=== PATIENT | female | born 1950 | race Caucasian/White ===

== ENCOUNTER 2025-01-07 05:51 | Observation (INO) | payer OTHER ==
[2025-01-05 10:36] LABS: IMMATURE GRANULOCYTE ABSOLUTE 0.04 K/uL (0-1); NUCLEATED RED BLOOD CELLS 0.0 % (0.0-0.19); PLATELET COUNT (AUTO) 246 K/uL (130-400); RED BLOOD CELL COUNT(AUTO) 4.60 MIL/uL (4.00-5.50); RED CELL DISTRIBUTION WIDTH 14.3 % (11.0-15.5); WHITE BLOOD COUNT (AUTO) 5.8 K/uL (4.8-10.8)
[2025-01-05 10:39] VITALS: BP 138/63; PULSE 79; RESP 18; TEMP 97.3
--- NOTE | 2025-01-05 10:40 | NUR ---
RE: IS INITIAL IS INITIAL TEACHING DONE BY RT NICHOLAS DURING PREOP.
--- NOTE | 2025-01-05 10:44 | EKG ---
[facility] Test Date: 2025-01-05 Test Time: 10:28:48 Pat Name: JAYE MANSFIELD Department: [facility] Room: Gender: F Senior Office Assistant: [id number] : 1950 Requested By: SASHA RAZA Order Number: [id number] Reading MD: Jose Randall Measurements Intervals [place] Rate: 63 P: -23 NM: 75 QRS: 30 QRSD: 89 T: 67 QT: 406 QTc: 416 Interpretive Statements Sinus rhythm Low voltage, extremity and precordial leads Compared to ECG 08/17/2024 22:58:57 Low QRS voltage now present First degree AV block no longer present Electronically Signed On 01-05-2025 12:16:49 PLASTER APPLICATOR by Jose Randall Please click the below link to view image of tracing.
[2025-01-05 10:48] LABS: CREATININE 1.4 mg/dL (0.5-1.0); GLOMERULAR FILTR. RATE CALC 39.0 mL/min (>90); GLUCOSE,RANDOM 106.0 mg/dL (70-105); SODIUM SERUM 130.0 mmol/L (136-145); UREA NITROGEN, BLOOD 15.0 mg/dL (7-18)
[2025-01-05 11:48] LABS: INR 1.0 (0.85-1.15)
--- NOTE | 2025-01-05 16:45 | NUR ---
RE: LABS REPORTED BMP RESULTS TO DR ARNOLD, NO NEW ORDERS RECEIVED. OK TO PROCEED.
[~2025-01-07] VITALS: Ht 167.6 cm; Wt 107.1 kg
[2025-01-07] VITALS (23 sets, daily range): BP systolic 94–145; BP diastolic 50–78; PULSE 53–87; RESP 15–18; TEMP 97.6–98.1; O2SAT 94
[2025-01-07] MEDS ORDERED: TRANEXAMIC ACID 1000MG/10ML ONE (06:28)
[2025-01-07] MEDS: LACTATED RINGERS 1000ML 1,000 ML IV ONE (06:37)
[2025-01-07] MEDS ORDERED: MIDAZOLAM HCL 1 MG/ML 2ML VIAL ONE (06:48)
[2025-01-07] MEDS ORDERED: LIDOCAINE HCL/EPINEPHRINE 30 ML VIAL IJ ONE (07:07)
[2025-01-07] MEDS ORDERED: PROMETHAZINE HCL 25 MG/ML 1ML AMPULE IM PRN (07:30)
[2025-01-07] MEDS: TRANEXAMIC ACID 1000MG/10ML IV ONE ×2 (07:54→09:23)
[2025-01-07] MEDS: 0.9%NACL 1000ML 1,000 ML IV SCH (08:00)
[2025-01-07] MEDS ORDERED: PoTASSium chloRIDE 20MEQ ER 20 MEQ ERTAB PO PRN (08:00)
[2025-01-07] MEDS ORDERED: FERROUS FUMARATE 324 MG TABLET PO PRN (08:00)
[2025-01-07] MEDS ORDERED: CYCLOBENZAPRINE HCL 10 MG TABLET PO PRN (08:00)
[2025-01-07] MEDS ORDERED: PoTASSium chl 10% ELIXIR 20MEQ 20 MEQ/15 ML UDCUP PO PRN (08:00)
[2025-01-07] MEDS ORDERED: HYDROcodone/APAP 5/325 1 TAB TABLET PO PRN ×2 (08:00→12:00)
[2025-01-07] MEDS ORDERED: CALCIUM CARB 500MG PO PRN (08:00)
[2025-01-07] MEDS ORDERED: GLYCOPYRROLATE 0.2 MG/ML 5 ML VIAL ONE (09:31)
[2025-01-07] MEDS ORDERED: NEOSTIGMINE METHYLSULFATE 1MG/ML IV ONE (09:31)
--- NOTE | 2025-01-07 09:55 | OP ---
Operative Note: DATE OF PROCEDURE: 01/07/25 PREOPERATIVE DIAGNOSIS: Left knee osteoarthritis. POSTOPERATIVE DIAGNOSIS: Left knee osteoarthritis. PROCEDURE PERFORMED: Left knee total knee arthroplasty. SURGEON: Khushboo Luna MD BIOMEDICAL EQUIPMENT TECHNICIAN: Adan Mccallum. ANESTHESIA: General with adductor canal block. ANESTHESIA: UTILITY AGENT Darrell Arizmendi. ESTIMATED BLOOD LOSS: 50cc. COMPLICATIONS: None. DRAINS: None. SPECIMENS REMOVED: resected bone. Not sent to pathology. IMPLANTS: [employer] Journey II BCS size 6 Oxinium femur, size 5 tibial base plate, 35 mm patella, 9 mm polyethylene STATEMENT OF MEDICAL NECESSITY: The patient is a 75-year-old female who suffers from left knee osteoarthritis failing conservative management. After discussion of the risks, benefits, and alternatives with the patient, they voluntarily agreed to undergo the aforementioned procedure. DESCRIPTION OF PROCEDURE: Patient was properly identified in the preoperative holding area. Surgical site marking was verified and surgery consent reviewed. The patient was then taken to the operating room and placed in supine position on the OR table. After induction of general anesthesia, preoperative antibiotics were given, all bony prominences were well-padded, and a well padded tourniquet was applied but not inflated at this time. The left lower extremity was then prepped and draped in usual sterile fashion. Surgical time out was done verifying correct surgery, side, site, and location to be performed. We then began the procedure by exsanguinating the limb using an Esmarch and inflating the tourniquet to 350 mmHg. At this point, we made an anterior midline incision using a 10 blade, coming down sharply the level of the fascia. Skin flaps were elevated medially and laterally. We then obtained a clean 10 blade and performed a standard medial parapatellar arthrotomy. We excised the infrapatellar fat pad. We performed our soft tissue releases off of the tibia. We transected the ACL and removed the anterior portion of the medial & lateral meniscus. We then brought the knee into hyperflexion with the patella everted. We used our entry reamer to enter the femoral canal. We then placed our intramedullary cutting guide for our distal femoral cutting block. We then performed our distal femoral osteotomy ensuring appropriate rotation and removed the bony wafer. We then removed these pins and block and then used jig 2 to size the distal femur with the after mentioned size found. We then placed our 5-in-1 cutting block in 3 degrees of external rotation and took our 5 cuts ensuring to protect the patellar tendon and the collateral ligaments. We then removed the cutting block and our bony fragments using a curved osteotome. We then placed our PCL retractor subluxating the tibia anteriorly. Using an extra medullary tibial cutting guide, we hung the block for our proximal tibial cut taking 2 mm off the more diseased portion. Prior to pinning this block in place, we ensured appropriate varus/valgus alignment and posterior slope similar to the [place] slope of the patient's knee. We then performed our proximal tibial osteotomy and removed the bony wafer using Bovie electrocautery to release any remaining soft tissue attachments. We then used our tibial sizing paddle and checked once more for varus & valgus alignment and found this to be appropriate. At this point, we pinned our tibial paddle in place. We then removed the PCL retractor and subluxated the tibia posteriorly while we placed our femoral trial component. We then finished preparing the notch with the reamer and box chisel. The notch portion of the trial femoral component was then placed. A posterior stabilized polyethylene, size 9 trial was placed. The knee was then taken through range of motion and found to have stable full range of motion. We then placed a bump under the ankle and everted the patella to perform our freehand cut of the undersurface the patella. We then sized our patella and reamed to the lug holes for this. We placed our trial patellar component and begin to take the knee through range of motion. The patella had significant lateral tracking that improved after a large lateral release. At this point we began removing our trial components and punched the tibial keel prior to removing our tibial trial component. Final components were opened and cement was mixed on the back table while we injected local cocktail in the posterior capsule. We then thoroughly irrigated out the bone and dried the bony surfaces. We cemented our tibial component in place ensuring to remove excess cement and placed our trial polyethylene. We then cemented our femoral component in place once again taking time to ensure excess cement was removed leg was brought into full extension to help squeeze the excess cement from around the femoral component. We then brought the knee back in a flexion to remove this portion of the cement at this point we placed the ankle in a bump thoroughly irrigated off the patellar component and cemented our patellar component in standard fashion again removing excess cement. While we waited for the cement to cure, we thoroughly irrigated out the wound with normal saline. Once our cement had cured, we took the knee through a range of motion and found full and stable range of motion. We then elected to use the size 9 polyethylene and removed our trial polyethylene. We impacted our final polyethylene component in place in standard fashion and took the knee through a range of motion check once more. This was satisfactory so we began to repair the arthrotomy using #5 Ethibond and #1 Vicryl in interrupted [id number] fashion. Subcutaneous tissue was repaired using 2-0 Vicryl. Running subcuticular 3-0 Monocryl stitch with Dermabond placed over this for the skin. We then applied a foam barrier dressing and a pressure dressing consisting of 4 x 4's fluffs and an Jonathan wrap. The tourniquet was then deflated. Patient was awakened from anesthesia, and they were taken to the recovery room in stable condition. KHUSHBOO LUNA MD Jan 07, 2025 09:54
--- NOTE | 2025-01-07 10:50 | NUR ---
PATIENT REPORT RECEIVED PATIENT FROM [facility] TO [facility] DIRECTOR OF DIAGNOSTIC IMAGING. LT TKA WITH DR. RAZA. GENERAL ANESTHESIA WITH BLOCK. FIRST DOSE OF TORADOL ADMINISTERED. FENTANYL 25 MCGS ADMINISTERED. 50 EBL. VITALS: BLOOD PRESSURE 103/54, HR 56, RR 17, SPO2-94% 2L NC.
--- NOTE | 2025-01-07 11:10 | NUR ---
UNIT ARRIVAL RECEIVED PATIENT FROM [facility] ADMINISTRATOR. PATIENT AWAKE, ALERT AND ORIENTED. NO SIGNS OF DISTRESS NOTED. PATIENT REPORTS NO PAIN AT THIS TIME. POST OP VITALS INITIATED. NEURO CHECK PERFORMED. NS RUNNING AT 100 ML/HR. SCD'S PLACED. RESPIRATORY THERAPY AND PHYSICAL THERAPY NOTIFIED. BED LOCKED AND IN LOWEST POSITION. CALL LIGHT WITHIN REACH.
--- NOTE | 2025-01-07 11:16 | HMCIMG ---
EXAM: CR left knee, 2 View. CLINICAL HISTORY: S/P LEFT TKA SURGERY COMPARISON: None provided. FINDINGS: Cemented left total knee arthroplasty near anatomic alignment. Appropriate postsurgical changes overlying the knee joint. IMPRESSION: 1. Status post left total knee arthroplasty with near anatomic alignment. /[place]
--- NOTE | 2025-01-07 13:30 | NUR ---
Educated patient to request pain medication with breakfast and lunch so pain will be manageable for PT treatments. Patient voiced understanding.
--- NOTE | 2025-01-07 17:00 | NUR ---
ORTHO COORDINATOR: TEACHING REGARDING DVT AND PNEUMONIA PREVENTION, PAIN EXPECTATIONS AND PAIN MANAGEMENT. PATIENT BED, RODGER BANDAGE TO LEFT KNEE, ICE PACK TO KNEE. PATIENT BED MOVED TO FLAT POSITION, REMOVED BEND AT KNEE. B SCD SLEEVES IN PLACE AND FUNCTIONING. RATIONALE PROVIDED. PAIN MANAGEMENT STRATEGY REVIEWED. SCHEDULED AND PRN MEDICATIONS REVIEWED. NUMERIC PAIN SCALE REVIEWED. INCENTIVE SPIROMETER AT BEDSIDE, PATIENT RETURN DEMONSTRATED PROPER USE AND VERBALIZED PROPER FREQUENCY OF USE, RATIONALE PROVIDED. PATIENT RETURN DEMONSTRATED PROPER FOOT FLEXION AND EXTENSION EXERCISES, RATIONALE PROVIDED. PATIENT INTENDS TO DISCHARGE TO REHAB. REHAB PROCESS REVIEWED. SET EXPECTATION FOR PATIENT TO SHOWER TOMORROW, RATIONALE PROVIDED. PATIENT VERBALIZED UNDERSTANDING TO ALL INSTRUCTIONS. NO ADDITIONAL QUESTIONS OR CONCERNS.
[2025-01-07] MEDS: amLODIPine 5 MG TAB PO SCH (20:39)
[2025-01-07] MEDS: LISINOPRIL 40 MG TABLET PO SCH (20:39)
[2025-01-08] VITALS (7 sets, daily range): BP systolic 94–137; BP diastolic 54–65; PULSE 82–98; RESP 18–20; TEMP 97.8–99.8; O2SAT 95
[2025-01-08 04:10] LABS: NUCLEATED RED BLOOD CELLS 0.0 % (0.0-0.19); PLATELET COUNT (AUTO) 186.0 K/uL (130-400); RED BLOOD CELL COUNT(AUTO) 3.3 MIL/uL (4.00-5.50); RED CELL DISTRIBUTION WIDTH 14.5 % (11.0-15.5); WHITE BLOOD COUNT (AUTO) 9.3 K/uL (4.8-10.8)
[2025-01-08 04:23] LABS: CREATININE 1.1 mg/dL (0.5-1.0); GLOMERULAR FILTR. RATE CALC 52.0 mL/min (>90); GLUCOSE,RANDOM 126.0 mg/dL (70-105); SODIUM SERUM 132.0 mmol/L (136-145); UREA NITROGEN, BLOOD 17.0 mg/dL (7-18)
[2025-01-08] MEDS: HYDROcodone/APAP 5/325 1 TAB TABLET PO PRN (06:18)
--- NOTE | 2025-01-08 08:25 | PN ---
Ortho postop day one. This morning patient is awake alert oriented she is out of bed seated in a chair alternating extension and flexion of the extremity using a footstool. Ice is currently present. The dressing has been adjusted to only Jonathan bandage around the lower extremity to allow for compression. Boris stockings were too small. There is also Jonathan bandage to the contralateral extremity. Both Jonathan bandages were adjusted to include the foot and ankle. Vital signs have remained stable. Afebrile. Voiding on her own. Laboratory results reviewed. Noted to have a drop in hemoglobin and hematocrit as expected after TKA. Patient is currently asymptomatic we will address per protocol as necessary. Reinforced incentive spirometry. Operative findings discussed with the patient. Ambulated yesterday with physical therapy about 30 ft. Pending further physical therapy this morning. The patient will be discharged to skilled nurse facility. Assessment: Status post left total knee arthroplasty. Acute postoperative blood loss anemia. Plan: Continue Dr. Luna's TKA protocol and discharge planning. Acute postoperative blood loss anemia addressed with protocol as necessary Vitals/Labs Vital Signs Date Time Temp Pulse Resp B/P (MAP) Pulse Ox O2 Delivery O2 Flow Rate FiO2 01/08/25 04:00 97.9 98 18 109/54 93 Room Air 01/07/25 20:00 0 21 Laboratory Tests 01/08/25 03:46 Medications Current Medications Tranexamic Acid 1,000 mg STK-MED ONCE .ROUTE; Start 01/07/25 at 06:28; Stop 01/07/25 at 06:28; Status DC Ketorolac Tromethamine 30 mg STK-MED ONCE .ROUTE; Start 01/07/25 at 06:28; Stop 01/07/25 at 06:28; Status DC Ropivacaine 150 mg STK-MED ONCE .ROUTE; Start 01/07/25 at 06:28; Stop 01/07/25 at 06:28; Status DC Cefazolin Sodium 2 gm STK-MED ONCE .ROUTE; Start 01/07/25 at 06:37; Stop 01/07/25 at 06:37; Status DC Lactated Ringer's 1,000 ml @ As Directed STK-MED ONCE IV; Start 01/07/25 at 06:37; Stop 01/07/25 at 06:37; Status DC Ondansetron HCl 4 mg STK-MED ONCE .ROUTE; Start 01/07/25 at 06:48; Stop 01/07/25 at 06:48; Status DC Propofol 200 mg STK-MED ONCE IV; Start 01/07/25 at 06:48; Stop 01/07/25 at 06:48; Status DC Midazolam HCl 2 mg STK-MED ONCE .ROUTE; Start 01/07/25 at 06:48; Stop 01/07/25 at 06:48; Status DC Rocuronium [place] 50 mg STK-MED ONCE .ROUTE; Start 01/07/25 at 06:48; Stop 01/07/25 at 06:48; Status DC Fentanyl Citrate 100 mcg STK-MED ONCE .ROUTE; Start 01/07/25 at 06:49; Stop 01/07/25 at 06:49; Status DC Hydromorphone HCl 1 mg STK-MED ONCE .ROUTE; Start 01/07/25 at 07:06; Stop 01/07/25 at 07:06; Status DC Acetaminophen 100 ml @ As Directed STK-MED ONCE .ROUTE; Start 01/07/25 at 07:06; Stop 01/07/25 at 07:06; Status DC Ropivacaine 150 mg STK-MED ONCE .ROUTE; Start 01/07/25 at 07:07; Stop 01/07/25 at 07:08; Status DC Lidocaine/ Epinephrine 30 ml STK-MED ONCE IJ; Start 01/07/25 at 07:07; Stop 01/07/25 at 07:08; Status DC Dexamethasone Sodium Phosphate 10 mg STK-MED ONCE .ROUTE; Start 01/07/25 at 07:10; Stop 01/07/25 at 07:10; Status DC Ondansetron HCl 4 mg AD PRN IVP; Start 01/07/25 at 07:30; Stop 01/07/25 at 11:20; Status DC Metoclopramide HCl 10 mg AD PRN IVP; Start 01/07/25 at 07:30; Stop 01/07/25 at 11:20; Status DC Promethazine HCl 25 mg AD PRN IM; Start 01/07/25 at 07:30; Stop 01/07/25 at 11:20; Status DC Ketorolac Tromethamine 30 mg AD PRN IV; Start 01/07/25 at 07:30; Stop 01/07/25 at 11:20; Status DC Morphine Sulfate 2 mg AD PRN IVP; Start 01/07/25 at 07:30; Stop 01/07/25 at 11:20; Status DC Fentanyl Citrate 25 mcg Q5MIN PRN IVP Last administered on 01/07/25at 10:30; Start 01/07/25 at 07:30; Stop 01/07/25 at 11:20; Status DC Naloxone HCl 0.1 mg AD PRN IVP; Start 01/07/25 at 07:30; Stop 01/07/25 at 11:20; Status DC Sodium Chloride 1,000 ml @ 100 mls/hr Q10H IV; Start 01/07/25 at 08:00; Stop 01/08/25 at 07:59; Status DC Polyethylene Glycol 17 gm DAILY PO; Start 01/07/25 at 09:00; Stop 02/06/25 at 08:59 Bisacodyl 10 mg DAILY PRN RC; Start 01/10/25 at 08:00; Stop 02/09/25 at 07:59 Ketorolac Tromethamine 15 mg Q6H PRN IV; Start 01/08/25 at 08:00; Stop 01/13/25 at 07:59 Ferrous Fumarate 324 mg DAILY PRN PO; Start 01/07/25 at 08:00; Stop 02/06/25 at 07:59 Ondansetron HCl 4 mg Q6H PRN IVP; Start 01/07/25 at 08:00; Stop 02/06/25 at 07:59 Calcium Carbonate 500 mg Q12H PRN PO; Start 01/07/25 at 08:00; Stop 02/06/25 at 07:59 Cefazolin Sodium 2 gm Q8H IVP; Start 01/07/25 at 13:00; Stop 01/07/25 at 13:19; Status DC Cyclobenzaprine HCl 5 mg Q8H PRN PO; Start 01/07/25 at 08:00; Stop 02/06/25 at 07:59 Gabapentin 100 mg TID PO Last administered on 01/07/25at 20:38; Start 01/07/25 at 09:00; Stop 02/06/25 at 08:59 Aspirin 325 mg DAILY PO; Start 01/08/25 at 09:00; Stop 02/07/25 at 08:59 Ketorolac Tromethamine 15 mg Q8H IV Last administered on 01/08/25at 00:18; Start 01/07/25 at 08:00; Stop 01/08/25 at 00:01; Status DC Docusate Sodium 100 mg BID PO Last administered on 01/07/25at 20:37; Start 01/07/25 at 09:00; Stop 02/06/25 at 08:59 Potassium Chloride 100 ml @ 100 mls/hr AD PRN IV; Start 01/07/25 at 08:00; Stop 02/06/25 at 07:59 Potassium Chloride 20 meq AD PRN PO; Start 01/07/25 at 08:00; Stop 02/06/25 at 07:59 Potassium Chloride 20 meq AD PRN PO; Start 01/07/25 at 08:00; Stop 02/06/25 at 07:59 Tramadol HCl 50 mg Q6H PRN PO; Start 01/07/25 at 08:00; Stop 01/12/25 at 07:59 Acetaminophen/ Hydrocodone Bitart Q4H PRN PO; Start 01/07/25 at 08:00; Stop 01/07/25 at 11:29; Status DC Atorvastatin Calcium 10 mg HS PO Last administered on 01/07/25at 20:37; Start 01/07/25 at 21:00; Stop 02/06/25 at 20:59 Levothyroxine Sodium 75 mcg SYN PO Last administered on 01/08/25at 06:18; Start 01/08/25 at 06:30; Stop 02/07/25 at 06:29 Lisinopril 40 mg HS PO; Start 01/07/25 at 21:00; Stop 02/06/25 at 20:59 Metoprolol Succinate 50 mg HS PO; Start 01/07/25 at 21:00; Stop 02/06/25 at 20:59 Montelukast Sodium 10 mg DAILY PO; Start 01/07/25 at 09:00; Stop 02/06/25 at 08:59 Amlodipine Besylate 10 mg HS PO; Start 01/07/25 at 21:00; Stop 02/06/25 at 20:59 Home Med NOON PO; Start 01/07/25 at 12:00; Stop 02/06/25 at 11:59 Phenylephrine HCl 10 mg STK-MED ONCE IV; Start 01/07/25 at 08:06; Stop 01/07/25 at 08:06; Status DC Cefazolin Sodium 2 gm STK-MED ONCE IVPB Last administered on 01/07/25at 07:53; Start 01/07/25 at 07:53; Stop 01/07/25 at 08:44; Status DC Tranexamic Acid 1,000 mg STK-MED ONCE IV Last administered on 01/07/25at 07:54; Start 01/07/25 at 07:54; Stop 01/07/25 at 08:45; Status DC Ropivacaine 150 mg STK-MED ONCE IJ Last administered on 01/07/25at 08:40; Start 01/07/25 at 08:40; Stop 01/07/25 at 08:45; Status DC Ketorolac Tromethamine 30 mg STK-MED ONCE IJ Last administered on 01/07/25at 08:40; Start 01/07/25 at 08:40; Stop 01/07/25 at 08:45; Status DC Tranexamic Acid 1,000 mg STK-MED ONCE IV Last administered on 01/07/25at 09:23; Start 01/07/25 at 09:23; Stop 01/07/25 at 09:24; Status DC Glycopyrrolate 1 mg STK-MED ONCE .ROUTE; Start 01/07/25 at 09:31; Stop 01/07/25 at 09:31; Status DC Neostigmine Methylsulfate 10 mg STK-MED ONCE IV; Start 01/07/25 at 09:31; Stop 01/07/25 at 09:31; Status DC Fentanyl Citrate 100 mcg STK-MED ONCE .ROUTE; Start 01/07/25 at 09:50; Stop 01/07/25 at 09:50; Status DC Fentanyl Citrate 100 mcg STK-MED ONCE .ROUTE; Start 01/07/25 at 10:20; Stop 01/07/25 at 10:21; Status DC Ketorolac Tromethamine 15 mg STK-MED ONCE .ROUTE; Start 01/07/25 at 10:36; Stop 01/07/25 at 10:36; Status DC Acetaminophen/ Hydrocodone Bitart 1 tab Q4H PRN PO Last administered on 01/08/25at 06:18; Start 01/07/25 at 12:00; Stop 01/12/25 at 11:59 Acetaminophen/ Hydrocodone Bitart 2 tab Q4H PRN PO; Start 01/07/25 at 12:00; Stop 01/12/25 at 11:59 Cefazolin Sodium 2 gm Q8H IVP Last administered on 01/08/25at 00:18; Start 01/07/25 at 16:00; Stop 01/08/25 at 00:01; Status DC [facility] Jan 08, 2025 08:25
[2025-01-08] MEDS: ASPIRIN 325MG EC TAB PO SCH (09:01)
--- NOTE | 2025-01-08 09:02 | NUR ---
MEDICATION REFUSAL PATIENT REFUSED AM DOSE OF MIRALAX AND DOCUSATE. PATIENT WITH COLOSTOMY BAG. PATIENT STATES HER BOWEL SCHEDULE IS DIFFERENT AND DOES NOT MEDICATIONS TO INTERFERE. EDUCATION PROVIDED PATIENT CONTINUES TO REFUSE AT THIS TIME.
--- NOTE | 2025-01-08 11:10 | NUR ---
DCP CM MET WITH PT THIS MORNING, INITIAL ASSESSMENT DONE. PATIENT IS INDEPENDENT PRIOR TO SURGERY, LIVES AT HOME ALONE. PATIENT VERBALIZED SHE HAS A WALKER THAT BELONGS TO HER FRIEND THAT HER FRIEND LEND TO HER, CANE, SHOWER CHAIR. BPM. DENIES ANY OTHER EQUIPMENT/SERVICES. FEELS SAFE TO GO BACK HOME, STILL DRIVE, FRIEND ABLE TO ASSIST WITH TRANSPORTATION NECESSARY. DISCUSSED MD RECOMMENDATIONS FOR SHORT TERM REHAB, PT AGREEABLE, CONSENT SIGNED PASCUAL FOR [facility], #2 ANY IN NETWORK A BACK UP IN CASE. [facility] ONCE APPROVED. CM TO CONTINUE TO FOLLOW UP.
[2025-01-09] VITALS: BP 120/57; PULSE 88; RESP 18; TEMP 98.3
[2025-01-09 04:00] VITALS: BP 115/62; PULSE 73; RESP 18; TEMP 98.1
[2025-01-09 07:00] VITALS: BP 102/66; PULSE 78; RESP 18; TEMP 100.1
[2025-01-09 08:45] VITALS: O2SAT 94
[2025-01-09 12:28] VITALS: BP 125/57; PULSE 69; RESP 18; TEMP 98
--- NOTE | 2025-01-09 16:30 | NUR ---
PATIENT DISCHARGE PATIENT DISCHARGED TO [facility]. PERIPHERAL IV REMOVED CATHETER INTACT. DRESSING CLEAN DRY AND INTACT. SMALL SANGUINEOUS DRAINAGE NOTED. PATIENT REPORTS PAIN 06/14. MEDICATION ADMINISTERED. DISCHARGE EDUCATION PROVIDED. PATIENT AWARE OF APPT WITH [facility] 01/27 AT 9:15. ALL QUESTIONS ANSWERED. ALL BELONGINGS SENT WITH PATIENT. HOME MEDICATIONS RETURNED TO PATIENT. REPORT CALLED TO [facility]. S/W DOMINIC MARIE. PENDING FACILITY ORTHOPAEDIC SURGEON.
--- NOTE | 2025-01-09 17:23 | NUR ---
FACILITY TRANSPORT FACILITY TRANSPORT ON UNIT. PATIENT TRANSFERRED TO [facility].
== END 2025-01-09 16:46 ==
LOC: DAH 05:51 → DAHIP 07:53 → 4AH 11:10
PROVIDERS: ADMIT Student in an Organized Health Care Education/Training Program; ATTEND Student in an Organized Health Care Education/Training Program
DX: M17.12 Unilateral primary osteoarthritis, left knee (principal); M25.562 Pain in left knee; D62 Acute posthemorrhagic anemia; N28.9 Disorder of kidney and ureter, unspecified; I10 Essential (primary) hypertension; E66.9 Obesity, unspecified; Z68.38 Body mass index [BMI] 38.0-38.9, adult; Z79.899 Other long term (current) drug therapy; Z98.890 Other specified postprocedural states; Z86.73 Personal history of transient ischemic attack (TIA), and cerebral infarction without residual deficits
CPT/HCPCS: 82040; 80048 ×2; 85025; 85610; 85730; 84134; 86140; 36415 ×2; 93005; 87641; 27447; 96374; 96375; 64447; 73560; 97161; 97116 ×5; 96376 ×2; 85027; 97530 ×4; G0378 ×57; A4223 ×2; A4663; J7120; J3010 ×3; J1171; J3490 ×5; J1100; J2250; J2704; J2405; J1885 ×7; J2710; J2795 ×3; J2371; J0690 ×4; C1713 ×2; C1776 ×2; A4649 ×2; A6255; A5120; A4215; A4213; A4222; A4221; A4216